=== PATIENT | male | born 1945 | race Caucasian/White ===

== ENCOUNTER 2024-04-29 07:57 | Emergency (ER) | payer MEDICARE ==
[~2024-04-29] VITALS: Ht 188 cm; Wt 83.0 kg
[2024-04-29] MEDS: ondansetron/PF 4mg/2ml inj IV ONE (08:38)
[2024-04-29] MEDS: normal saline 1000ML IV soln IVB ONE (08:39)
[2024-04-29] MEDS: morphine 2 MG/ML inj. syringe IV ONE (08:42)
[2024-04-29 08:50] VITALS: TEMP 98.1
[2024-04-29 09:47] LABS: BASOPHILS % (AUTO) 0.5 % (0-1); EOSINOPHILS % (AUTO) 0.4 % (0-6); HEMATOCRIT 31.1 % (42.0-52.0); HEMOGLOBIN 10.1 g/dl (14.0-17.9); LYMPHOCYTES % (AUTO) 13.5 % (21-51); MEAN CORPUSCULAR HEMOGLOBIN 27.1 PG (27.0-31.0); MEAN CORPUSCULAR HGB CONC 32.4 g/dL (33.0-36.5); MEAN CORPUSCULAR VOLUME 83.6 FL (78-98); MONOCYTES # (AUTO) 0.5 X10'3 (0-0.9); MONOCYTES % (AUTO) 6.8 % (2-12); NEUTROPHILS # (AUTO) 5.7 X10'3 (1.8-7.7); NEUTROPHILS % (AUTO) 78.8 % (42-75); PLATELET COUNT 142 X10'3 (140-440); RED BLOOD COUNT 3.72 X10'6 (4.70-6.10); RED CELL DISTRIBUTION WIDTH 16.2 % (11.5-14.5); WHITE BLOOD COUNT 7.2 X10'3 (4.5-11.0)
[2024-04-29 09:51] LABS: BILIRUBIN,URINE NEGATIVE (Neg); CLARITY,URINE CLEAR (Clear); COLOR,URINE YELLOW (Yellow); GLUCOSE, URINE NEGATIVE (Neg); KETONES,URINE TRACE mg/dl (Neg); LEUKOCYTE ESTERASE ,URINE NEGATIVE (Neg); NITRITES, URINE NEGATIVE (Neg); OCCULT BLOOD,URINE NEGATIVE (Neg); PH,URINE 8.5 (4.8-8.0); PROTEIN,URINE NEGATIVE (Neg); UROBILINOGEN,URINE 0.2 E.U/dL (0.2-1.0)
[2024-04-29 09:52] LABS: UA COLLECTION TYPE CLN CATCH MIDSTREAM
[2024-04-29] MEDS ORDERED: iohexol 300mg/ml 100ml inj. ONE (10:08)
[2024-04-29 10:14] LABS: ALANINE AMINOTRANSFERASE 55 U/L (12-78); ALBUMIN 2.2 G/DL (3.4-5.0); ALBUMIN/GLOBULIN RATIO 0.8 (1.1-1.5); ALKALINE PHOSPHATASE 71 IU/L (46-116); ANION GAP 9 (8-16); ASPARTATE AMINO TRANSFERASE 96 U/L (10-37); BILIRUBIN,TOTAL 1.7 MG/DL (0.1-1.0); BLOOD UREA NITROGEN 12 MG/DL (7-18); BUN/CREATININE RATIO 13.2 (10.0-20.0); CALCIUM 7.1 MG/DL (8.5-10.1); CHLORIDE 112 MMOL/L (99-107); CREATININE 0.91 MG/DL (0.60-1.10); GLUCOSE 94 MG/DL (70-104); LIPASE 28 U/L (16-77); POTASSIUM 3.4 MMOL/L (3.5-5.1); SODIUM 145 MMOL/L (135-145); TOTAL CARBON DIOXIDE 24.4 MMOL/L (24-32); TOTAL PROTEIN 4.8 G/DL (6.4-8.2); eCRCL 78 ML/MIN; eGFR 81 ML/MIN
[2024-04-29 12:04] VITALS: BP 113/71; PULSE 69; RESP 14; O2SAT 99
[2024-04-29] MEDS ORDERED: piperacillin/tazo 3.375gm/50ml 50 ML IV SCH (16:00)
== END 2024-04-29 13:43 | disposition home or self-care (01) ==
LOC: ER 07:58
DX: R10.33 Periumbilical pain (principal)
CPT/HCPCS: 36415; 74177; 80053; 81003; 83605; 83690; 84145; 85025; 87040; 93005; 96361; 96374; 96375; 99285; J2270; J2405; J7030; Q9967